=== PATIENT | male | born 1985 | race American Indian/Alaskan Native ===

== ENCOUNTER 2021-02-23 09:54 | Emergency (ER) | payer SELFPAY ==
--- NOTE | 2021-02-23 10:41 | Emergency Department Report ---
ED General Adult HPI - General Chief complaint: Chest Pain Stated complaint: Chest Pain, Headache Time Seen by Provider: 02/23/21 10:07 Source: patient Mode of arrival: Ambulatory Limitations: No Limitations - History of Present Illness Initial comments: Patient is a 35-year-old male presents emergency room with points of substernal chest pain that began 3 days ago. He states he has intermittent sharp pain. He states he is also been having headache. Patient reports that he is also been having a cough and he reports that this morning when he coughed he had blood present in his mucus. He denies any fever, sore throat, epistaxis, shortness of breath, leg swelling, calf pain, vomiting, diarrhea. He denies any known sick contacts or recent travel. He has been fully vaccinated for COVID-19. No past medical history. No allergies to medications. He states he is a non-smoker. He denies any recent surgery or immobilization. Severity scale (0 -10): 8 - Related Data Allergies Allergy/AdvReac Type Severity Reaction Status Date / Time No Known Allergies Allergy Unverified 02/23/21 09:58 ED Review of Systems ROS: Stated complaint: Chest Pain, Headache Other details as noted in HPI Comment: All other systems reviewed and negative ED Physical Exam - General Limitations: No Limitations General appearance: alert, in no apparent distress - Head Head exam: Present: atraumatic, normocephalic - Eye Eye exam: Present: normal appearance - ENT ENT exam: Present: mucous membranes moist - Respiratory Respiratory exam: Present: normal lung sounds bilaterally. Absent: respiratory distress, wheezes, rales, rhonchi, stridor, chest wall tenderness, accessory mu scle use, decreased breath sounds, prolonged expiratory - Cardiovascular Cardiovascular Exam: Present: regular rate, normal rhythm, normal heart sounds. Absent: systolic murmur, diastolic murmur, rubs, gallop - Neurological Exam Neurological exam: Present: alert, oriented X3 - Psychiatric Psychiatric exam: Present: normal affect, normal mood - Skin Skin exam: Present: warm, dry, intact ED Course Vital Signs 02/23/21 02/23/21 02/23/21 09:58 10:53 12:10 Temperature 97.8 F 97.8 F Pulse Rate 68 69 Respiratory 16 17 Rate Blood Pressure 120/71 117/67 [Left] O2 Sat by Pulse 99 100 99 Oximetry ED Medical Decision Making - Lab Data Result diagrams: 02/23/21 11:00 02/23/21 11:00 - EKG Data EKG shows normal: sinus rhythm, axis, intervals, QRS complexes, ST-T waves Rate: normal - Radiology Data Radiology results: report reviewed Ordering Physician: DORA KEY Date of Service: 02/23/21 Procedure(s): XR chest routine 2V Accession Number(s): [id number] cc: DORA KEY Fluoro Time In Minutes: CHEST 2 VIEWS INDICATION / CLINICAL INFORMATION: CP, cough. COMPARISON: None available. FINDINGS: SUPPORT DEVICES: None. HEART / MEDIASTINUM: No significant abnormality. LUNGS / PLEURA: No significant pulmonary or pleural abnormality. No pneumothorax. ADDITIONAL FINDINGS: No significant additional findings. IMPRESSION: 1. No acute findings. Signer Name: Conner Johnson MD Signed: 02/23/2021 10:53 AM Workstation Name: [id number] Transcribed By: MJ Dictated By: Conner Johnson MD Electronically Authenticated By: Conner Johnson MD Signed Date/Time: 02/23/21 105 DD/ 52 TD/TT: - Medical Decision Making Patient is a 35-year-old male presents emergency room with points of substernal chest pain that began 3 days ago. He states he has intermittent sharp pain. He states he is also been having headache. Patient reports that he is also been having a cough and he reports that this morning when he coughed he had blood present in his mucus. He denies any fever, sore throat, epistaxis, shortness of breath, leg swelling, calf pain, vomiting, diarrhea. He denies any known sick contacts or recent travel. He has been fully vaccinated for COVID-19. No past medical history. No allergies to medications. He states he is a non-smoker. He denies any recent surgery or immobilization. Vitals are normal. Patient is afebrile, no tachycardia, no hypoxia, no hypotension. Chest x-ray with no acute process. EKG with normal limits. Labs are normal. Troponin is negative. D- dimer is negative. PERC criteria negative for PE, PE unlikely. Patient symptoms have been going on greater than 24 hours, EKG is normal, according to the [place] [employer] and 1 negative troponin is sufficient for ACS rule out. Heart score is 1, low risk for cardiac event. Symptoms and examination appear likely consistent with URI. Advised patient May take Mucinex or TheraFlu [id number]-[id number] to help with your symptoms. May take Tylenol as needed for any pain or headache. Increase your fluid intake. Follow-up with a primary care doctor. Return to emergency immediately for any new or worsening symptoms. Recommend outpatient COVID-19 testing and if positive will need to self quarantine for 10 days from onset of symptoms. Critical care attestation.: If time is entered above; I have spent that time in minutes in the direct care of this critically ill patient, excluding procedure time. ED Disposition Clinical Impression: Cough Chest pain Qualifiers: Chest pain type: unspecified Qualified Code(s): R07.9 - Chest pain, unspecified Headache Qualifiers: Headache type: unspecified Headache chronicity pattern: acute headache Intractability: not intractable Qualified Code(s): R51.9 - Headache, unspecified Disposition: 01 HOME / SELF CARE / HOMELESS Is pt being admited?: No Does the pt Need Aspirin: No Condition: Stable Instructions: Upper Respiratory Infection, Adult, [id number] Additional Instructions: May take Mucinex or TheraFlu [id number] to help with your symptoms. May take Tylenol as needed for any pain or headache. Increase your fluid intake. Follow-up with a primary care doctor. Return to emergency immediately for any new or worsening symptoms. Recommend outpatient COVID-19 testing and if positive will need to self quarantine for 10 days from onset of symptoms. Referrals: ANNABEL PETER MD [Primary Care Provider] - 3-5 Days JUNIE ZIMMERMAN MD [Staff Physician] - 3-5 Days [facility] [Provider Group] - 3-5 Days Forms: Work/School Release Form(ED) Time of Disposition: 11:54 Print Language: TUNISIAN HEART Score - HEART Score History: Slightly suspicious EKG: Normal Age: < 45 Risk factors: 1-2 risk factors Troponin: Troponin T < 0.010 ng/mL (0.00-0.029) 02/23/21 11:00 Troponin: < normal limit HEART Score: 1
--- NOTE | 2021-02-23 10:58 | XRay Report ---
CHEST 2 VIEWS INDICATION / CLINICAL INFORMATION: CP, cough. COMPARISON: None available. FINDINGS: SUPPORT DEVICES: None. HEART / MEDIASTINUM: No significant abnormality. LUNGS / PLEURA: No significant pulmonary or pleural abnormality. No pneumothorax. ADDITIONAL FINDINGS: No significant additional findings. IMPRESSION: 1. No acute findings. Signer Name: Conner Johnson MD Signed: 02/23/2021 10:53 AM Workstation Name: [id number]
[2021-02-23 11:17] LABS: Basophils % (Auto) 0.7 % (0.0-1.8); Eosinophils # (Auto) 0.2 K/mm3 (0.0-0.4); Eosinophils % (Auto) 3.5 % (0.0-4.3); Hematocrit 44.5 % (35.5-45.6); Hemoglobin 14.7 gm/dl (11.8-15.2); Lymphocytes # (Auto) 1.4 K/mm3 (1.2-5.4); Mean Corpuscular HGB Conc 33 % (32-34); Mean Corpuscular Volume 93 fl (84-94); Monocytes # (Auto) 0.6 K/mm3 (0.0-0.8); Monocytes % (Auto) 9.5 % (0.0-7.3); Platelet Count 204 K/mm3 (140-440); Red Blood Count 4.79 M/mm3 (3.65-5.03); Red Cell Distribution Width 12.1 % (13.2-15.2)
[2021-02-23 11:42] LABS: Alanine Aminotransferase 20 units/L (7-56); Albumin 4.1 g/dL (3.9-5); BUN/Creatinine Ratio 9; Blood Urea Nitrogen 9 mg/dL (9-20); Calcium 8.9 mg/dL (8.4-10.2); Hemolysis Index 29
[2021-02-23 12:20] VITALS: BP 117/67
--- NOTE | 2021-02-23 14:43 | Electrocardiograph Report ---
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
== END 2021-02-23 12:10 | disposition home or self-care (01) ==
LOC: ED 09:54
DX: R05.9 Cough, unspecified (principal); R07.9 Chest pain, unspecified; R51.9 Headache, unspecified
CPT/HCPCS: 36415; 71046; 80053; 84484; 85025; 85379; 93005; 99283